=== PATIENT | male | born 1975 | race Caucasian/White ===

== ENCOUNTER 2016-09-23 07:49 | Emergency (ER) | payer BC ==
[~2016-09-23] VITALS: Ht 177.8 cm; Wt 150.0 kg
[~2016-09-23 07:49] MED LIST: AMOXICILLIN875 MG OR; ANTI-INFLAMATORY; ANTIVERT PO; AZITHROMYCIN250 MG PO; BENADRYL 50MG C50 MG PO; BENZONATATE200 MG PO; CEPHALEXIN500 MG PO; KEFLEX500 M1 PO; LORTAB 10 OR; LORTAB 5/3255 MG PO; MEDDOSEPAK PO; MELOXICAM7.5 MG PO; NAPROSYN500 MG PO; NO; NO HOME MEDS; PEPCID20 MG PO; PERCOCET 10/31 COMBO PO; PREDNISONE1 MG PO; SYMBICORT 80-4.5MCG MT; TESSALON PER100 MG PO; ULTRAM50 M1 PO; ZYRTEC10 MG PO
[2016-09-23 09:12] LABS: HEMATOCRIT 44.7 % (39.0-50.0); HEMOGLOBIN 14.9 g/dl (14.0-18.0); IMMATURE GRANULOCYTES 0.6 % (0.0-1.0); MEAN CELL VOLUME 86.8 fL CALC (80.0-100.0); MEAN CORPUSCULAR HGB 28.9 pG CALC (26.0-32.0); MEAN CORPUSCULAR HGB CONC 33.3 g/L CALC (32.0-36.0); NEUT# 15.72 thou/uL (1.82-7.42); RED BLOOD COUNT 5.15 mill/uL (4.70-6.10); RED CELL DISTRI WIDTH 13.2 % (11.5-15.5)
[2016-09-23 09:30] LABS: ALBUMIN 4.5 g/dL (3.2-5.0); ALKALINE PHOSPHATASE 87 u/l (38-126); ANION GAP 17 (6-22 (CALC)); BILIRUBIN, TOTAL 0.6 mg/dL (0.0-1.4); BUN 12 mg/dL (9-20); BUN/CREATININE RATIO 17 (12-20 (CALC)); CALCIUM 9.4 mg/dL (8.4-10.2); CARBON DIOXIDE 23 mmol/l (22-30); CHLORIDE 104 mmol/l (95-108); CREATININE 0.7 mg/dL (0.7-1.3); GFR > 60 ML/MIN (>=60 (CALC)); GFR FOR AFR.AMER. > 60 ML/MIN (>=60 (CALC)); GLUCOSE 110 mg/dL (75-110); POTASSIUM 4.3 mmol/l (3.5-5.1); SGOT/AST 30 u/l (17-59); SGPT/ALT 49 u/l (21-72); SODIUM 140 mmol/l (137-146); TOTAL PROTEIN 7.8 g/dL (6.3-8.2)
[2016-09-23 09:48] LABS: URINE BILIRUBIN - DIPSTICK NEGATIVE (NEGATIVE); URINE BLOOD DIPSTICK SMALL (NEGATIVE); URINE CLARITY CLEAR; URINE COLOR YELLOW; URINE GLUCOSE - DIPSTICK NEGATIVE (NEGATIVE); URINE KETONE NEGATIVE (NEGATIVE); URINE LEUK ESTERASE NEGATIVE (NEGATIVE); URINE NITRITE - DIPSTICK NEGATIVE (Negative); URINE PROTEIN - DIPSTICK NEGATIVE (NEG-TRACE); URINE SPECIFIC GRAVITY 1.015; URINE UROBILINOGEN - DIPSTICK 0.2 E.U./dL (0.2)
[2016-09-23 09:50] LABS: URINE RBC 0-2 RBC/hpf (0-5)
[2016-09-23 13:20] VITALS: BP 108/54
== END 2016-09-23 13:20 | disposition short-term general hospital (02) | DRG 864 ==
LOC: ED 07:49
PROVIDERS: Emergency Medicine
PROC: 009U3ZX Drainage of Spinal Canal, Percutaneous Approach, Diagnostic (ICD-10-PCS; principal; 2016-09-23)
PROC: B01BZZZ Fluoroscopy of Spinal Cord (ICD-10-PCS; 2016-09-23)
DX: R50.9 Fever, unspecified (principal); R51 Headache

== ENCOUNTER 2016-10-05 23:33 | Emergency (ER) | payer BC ==
[~2016-10-05] VITALS: Ht 177.8 cm; Wt 141.4 kg
[2016-10-05] MEDS ORDERED: KEFLEX500 MG PO (23:51)
[2016-10-06] MEDS ORDERED: NAPROSYN500 MG PO (00:25)
[2016-10-06] MEDS ORDERED: AMOXICILLIN500 MG PO (00:25)
[2016-10-06 00:28] VITALS: BP 133/75
== END 2016-10-06 00:38 | disposition home or self-care (01) | DRG 316 ==
LOC: ED 23:33
DX: T80.1XXA Vascular complications following infusion, transfusion and therapeutic injection, initial encounter (principal); M79.632 Pain in left forearm

== ENCOUNTER 2017-01-05 15:28 | Emergency (ER) | payer OTHER, BC ==
[~2017-01-05] VITALS: Ht 177.8 cm; Wt 120.0 kg
[~2017-01-05 15:28] MED LIST changes: +AMOXICILLIN500 MG PO; +KEFLEX500 MG PO
[2017-01-05] MEDS ORDERED: TRAMADOL HYDROC50 MG PO (16:47)
[2017-01-05] MEDS ORDERED: MOTRIN800 MG PO (16:47)
[2017-01-05 16:51] VITALS: BP 150/68
== END 2017-01-05 16:55 | disposition home or self-care (01) | DRG 605 ==
LOC: ED 15:28
DX: S80.01XA Contusion of right knee, initial encounter (principal); M25.461 Effusion, right knee; M25.561 Pain in right knee; V59.49XA Driver of pick-up truck or van injured in collision with other motor vehicles in traffic accident, initial encounter; Y92.414 Local residential or business street as the place of occurrence of the external cause

== ENCOUNTER 2018-03-16 22:29 | Emergency (ER) | payer BC ==
[~2018-03-16] VITALS: Ht 177.8 cm; Wt 136.6 kg
[~2018-03-16 22:29] MED LIST changes: +MOTRIN800 MG PO; +TRAMADOL HYDROC50 MG PO
[2018-03-17] MEDS ORDERED: FLEXERIL PO (00:56)
[2018-03-17] MEDS ORDERED: NAPROSYN500 MG PO (00:56)
[2018-03-17 01:05] VITALS: BP 120/66
== END 2018-03-17 01:05 | disposition home or self-care (01) | DRG 554 ==
LOC: ED 22:29
DX: M17.12 Unilateral primary osteoarthritis, left knee (principal); M47.816 Spondylosis without myelopathy or radiculopathy, lumbar region; M79.605 Pain in left leg; M25.462 Effusion, left knee; M25.562 Pain in left knee; R20.0 Anesthesia of skin; M79.652 Pain in left thigh

== ENCOUNTER 2018-09-13 08:53 | Emergency (ER) | payer BC ==
[~2018-09-13] VITALS: Ht 177.8 cm; Wt 131.0 kg
[~2018-09-13 08:53] MED LIST changes: +FLEXERIL PO
[2018-09-13 10:23] LABS: HEMATOCRIT 46.9 % (39.0-50.0); HEMOGLOBIN 15.3 g/dl (14.0-18.0); IMMATURE GRANULOCYTES 1.2 % (0.0-5.0); MEAN CELL VOLUME 87.2 fL CALC (80.0-100.0); MEAN CORPUSCULAR HGB 28.4 pG CALC (26.0-32.0); MEAN CORPUSCULAR HGB CONC 32.6 g/L CALC (32.0-36.0); NEUT# 7.74 thou/uL (1.82-7.42); RED BLOOD COUNT 5.38 mill/uL (4.70-6.10); RED CELL DISTRI WIDTH 12.9 % (11.5-15.5)
[2018-09-13 10:29] LABS: ALBUMIN 4.4 g/dL (3.2-5.0); ALKALINE PHOSPHATASE 82 u/l (38-126); ANION GAP 16 (6-22 (CALC)); BUN 13 mg/dL (9-20); BUN/CREATININE RATIO 22 (12-20 (CALC)); CARBON DIOXIDE 23 mmol/l (22-30); CHLORIDE 106 mmol/l (95-108); CREATININE 0.6 mg/dL (0.7-1.3); GFR > 60 ML/MIN (>=60 (CALC)); GFR FOR AFR.AMER. > 60 ML/MIN (>=60 (CALC)); POTASSIUM 4.2 mmol/l (3.5-5.1); SGOT/AST 17 u/l (17-59); SODIUM 141 mmol/l (137-146); TOTAL PROTEIN 7.5 g/dL (6.3-8.2)
[2018-09-13 10:30] LABS: BILIRUBIN, TOTAL 0.3 mg/dL (0.0-1.4)
[2018-09-13 10:35] LABS: URINE BILIRUBIN - DIPSTICK NEGATIVE (NEGATIVE); URINE BLOOD DIPSTICK TRACE-LYSED (NEGATIVE); URINE COLOR YELLOW; URINE GLUCOSE - DIPSTICK NEGATIVE (NEGATIVE); URINE KETONE NEGATIVE (NEGATIVE); URINE LEUK ESTERASE NEGATIVE (NEGATIVE); URINE NITRITE - DIPSTICK NEGATIVE (Negative); URINE PH 5.5 (4.5-8.0); URINE PROTEIN - DIPSTICK NEGATIVE (NEG-TRACE); URINE SPECIFIC GRAVITY 1.025; URINE UROBILINOGEN - DIPSTICK 0.2 E.U./dL (0.2)
[2018-09-13] MEDS ORDERED: ZITHROMAX250 MG PO (11:00)
[2018-09-13] MEDS ORDERED: PROVENTIL HFA IN (11:00)
[2018-09-13] MEDS ORDERED: TESSALON PER100 MG PO (11:00)
[2018-09-13 11:04] VITALS: BP 128/70
== END 2018-09-13 11:14 | disposition home or self-care (01) | DRG 153 ==
LOC: ED 08:53
PROVIDERS: Emergency Medicine
DX: J06.9 Acute upper respiratory infection, unspecified (principal)

== ENCOUNTER 2019-01-21 14:45 | Emergency (ER) | payer BC ==
[~2019-01-21] VITALS: Ht 177.8 cm; Wt 152.0 kg
[~2019-01-21 14:45] MED LIST changes: +PROVENTIL HFA IN; +ZITHROMAX250 MG PO
[2019-01-21] MEDS ORDERED: GENTAK0.32 OS (15:56)
[2019-01-21 16:03] VITALS: BP 145/83
== END 2019-01-21 16:10 | disposition home or self-care (01) | DRG 125 ==
LOC: ED 14:45
DX: S05.02XA Injury of conjunctiva and corneal abrasion without foreign body, left eye, initial encounter (principal); W20.8XXA Other cause of strike by thrown, projected or falling object, initial encounter; Y93.89 Activity, other specified; Y92.89 Other specified places as the place of occurrence of the external cause; Y99.0 Civilian activity done for income or pay

== ENCOUNTER 2019-03-04 17:29 | Emergency (ER) | payer BC ==
[~2019-03-04] VITALS: Ht 177.8 cm; Wt 158.0 kg
[~2019-03-04 17:29] MED LIST changes: +BACTRIM DS1 TAB PO; +GENTAK0.32 OS
[2019-03-04 17:50] VITALS: BP 136/97
== END 2019-03-04 17:50 | disposition home or self-care (01) | DRG 951 ==
LOC: ED 17:29
DX: Z48.01 Encounter for change or removal of surgical wound dressing (principal)

== ENCOUNTER 2019-05-28 | Emergency (ER) | payer BC ==
[2019-05-28 12:38] LABS: HEMATOCRIT 42.2 % (39.0-50.0); HEMOGLOBIN 13.6 g/dl (14.0-18.0); IMMATURE GRANULOCYTES 0.4 % (0.0-5.0); MEAN CELL VOLUME 88.3 fL CALC (80.0-100.0); MEAN CORPUSCULAR HGB 28.5 pG CALC (26.0-32.0); MEAN CORPUSCULAR HGB CONC 32.2 g/L CALC (32.0-36.0); NEUT# 8.83 thou/uL (1.82-7.42); RED BLOOD COUNT 4.78 mill/uL (4.70-6.10); RED CELL DISTRI WIDTH 12.9 % (11.5-15.5)
[2019-05-28 12:51] LABS: ALBUMIN 4.1 g/dL (3.2-5.0); ALKALINE PHOSPHATASE 77 u/l (38-126); ANION GAP 10 (6-22 (CALC)); BUN 20 mg/dL (9-20); BUN/CREATININE RATIO 30 (12-20 (CALC)); CARBON DIOXIDE 26 mmol/l (22-30); CHLORIDE 106 mmol/l (95-108); CREATININE 0.7 mg/dL (0.7-1.3); GFR > 60 ML/MIN (>=60 (CALC)); GFR FOR AFR.AMER. > 60 ML/MIN (>=60 (CALC)); POTASSIUM 4.3 mmol/l (3.5-5.1); SGOT/AST 23 u/l (17-59); SODIUM 137 mmol/l (137-146); TOTAL PROTEIN 7.1 g/dL (6.3-8.2)
[2019-05-28 12:54] LABS: BILIRUBIN, TOTAL 0.5 mg/dL (0.0-1.4)
[2019-05-28 14:21] LABS: URINE BILIRUBIN - DIPSTICK NEGATIVE (NEGATIVE); URINE BLOOD DIPSTICK TRACE-INTACT (NEGATIVE); URINE CLARITY CLEAR; URINE COLOR YELLOW; URINE GLUCOSE - DIPSTICK NEGATIVE (NEGATIVE); URINE KETONE TRACE mg/dL (NEGATIVE); URINE LEUK ESTERASE NEGATIVE (Negative); URINE NITRITE - DIPSTICK NEGATIVE (Negative); URINE PH 6.5 (4.5-8.0); URINE PROTEIN - DIPSTICK NEGATIVE (NEG-TRACE); URINE UROBILINOGEN - DIPSTICK 0.2 E.U./dL (0.2)
[2019-05-28] MEDS ORDERED: TRAMADOL HYDROC50 M1 PO (15:10)
[2019-05-28] MEDS ORDERED: TAMSULOSIN0.4 MG PO (15:10)
== END 2019-05-28 15:35 | disposition home or self-care (01) | DRG 392 ==
DX: R10.32 Left lower quadrant pain (principal)
CPT/HCPCS: Q9967

== ENCOUNTER 2020-02-11 20:59 | Emergency (ER) | payer OTHER, BC ==
[~2020-02-11] VITALS: Ht 177.8 cm; Wt 136.0 kg
[~2020-02-11 20:59] MED LIST changes: +TAMSULOSIN0.4 MG PO; +TRAMADOL HYDROC50 M1 PO
[2020-02-12] MEDS ORDERED: IBUPROFEN600 MG PO (00:16)
[2020-02-12 01:05] VITALS: BP 120/78
== END 2020-02-12 01:05 | disposition home or self-care (01) | DRG 914 ==
LOC: ED 20:59
DX: S39.92XA Unspecified injury of lower back, initial encounter (principal); S93.601A Unspecified sprain of right foot, initial encounter; V47.0XXA Car driver injured in collision with fixed or stationary object in nontraffic accident, initial encounter; Y93.I9 Activity, other involving external motion; Y92.39 Other specified sports and athletic area as the place of occurrence of the external cause

== ENCOUNTER 2021-01-07 14:09 | Emergency (ER) | payer OTHER, BC ==
[~2021-01-07] VITALS: Ht 177.8 cm; Wt 145.5 kg
[~2021-01-07 14:09] MED LIST changes: +IBUPROFEN600 MG PO
[2021-01-07 15:08] LABS: HEMATOCRIT 40.9 % (39.0-50.0); IMMATURE GRANULOCYTES 0.3 % (0.0-5.0); MEAN CELL VOLUME 85.7 fL CALC (80.0-100.0); MEAN CORPUSCULAR HGB 27.3 pG CALC (26.0-32.0); MEAN CORPUSCULAR HGB CONC 31.8 g/dL CAL (32.0-36.0); NEUT# 5.71 thou/uL (1.82-7.42); RED BLOOD COUNT 4.77 mill/uL (4.70-6.10); RED CELL DISTRI WIDTH 13.2 % (11.5-15.5)
[2021-01-07 15:40] LABS: ALBUMIN 4.1 g/dL (3.2-5.0); ALKALINE PHOSPHATASE 86 u/l (38-126); ANION GAP 15 (6-22 (CALC)); BILIRUBIN, TOTAL 0.3 mg/dL (0.0-1.4); BUN 13 mg/dL (9-20); BUN/CREATININE RATIO 12 (12-20 (CALC)); CARBON DIOXIDE 25 mmol/l (22-30); CHLORIDE 103 mmol/l (95-108); GFR > 60 ML/MIN (>=60 (CALC)); GFR FOR AFR.AMER. > 60 ML/MIN (>=60 (CALC)); SGOT/AST 22 u/l (17-59); SODIUM 139 mmol/l (137-146); TOTAL PROTEIN 7.4 g/dL (6.3-8.2)
[2021-01-07] MEDS ORDERED: KEFLEX500 MG PO (16:02)
[2021-01-07 16:07] VITALS: BP 119/58
== END 2021-01-07 16:27 | disposition home or self-care (01) | DRG 603 ==
LOC: ED 14:09
DX: L03.115 Cellulitis of right lower limb (principal); Z96.641 Presence of right artificial hip joint

== ENCOUNTER 2021-04-20 21:34 | Emergency (ER) | payer OTHER, BC ==
[~2021-04-20] VITALS: Ht 177.8 cm; Wt 145.0 kg
[2021-04-20 23:51] LABS: HEMATOCRIT 41.2 % (39.0-50.0); HEMOGLOBIN 13.2 g/dl (14.0-18.0); IMMATURE GRANULOCYTES 0.3 % (0.0-5.0); MEAN CELL VOLUME 85.3 fL CALC (80.0-100.0); MEAN CORPUSCULAR HGB 27.3 pG CALC (26.0-32.0); NEUT# 5.14 thou/uL (1.82-7.42); RED BLOOD COUNT 4.83 mill/uL (4.70-6.10); RED CELL DISTRI WIDTH 15.1 % (11.5-15.5)
[2021-04-21 00:04] LABS: ALBUMIN 3.8 g/dL (3.2-5.0); ALKALINE PHOSPHATASE 72 u/l (38-126); BILIRUBIN, TOTAL 0.3 mg/dL (0.0-1.4); BUN 15 mg/dL (9-20); BUN/CREATININE RATIO 18 (12-20 (CALC)); CHLORIDE 103 mmol/l (95-108); CREATININE 0.8 mg/dL (0.7-1.3); GFR > 60 ML/MIN (>=60 (CALC)); GFR FOR AFR.AMER. > 60 ML/MIN (>=60 (CALC)); POTASSIUM 3.9 mmol/l (3.5-5.1); SGOT/AST 22 u/l (17-59); SODIUM 139 mmol/l (137-146)
[2021-04-21 00:06] LABS: ANION GAP 9 (6-22 (CALC)); CARBON DIOXIDE 31 mmol/l (22-30)
[2021-04-21] MEDS ORDERED: CYCLOBENZAPRINE10 MG PO (01:21)
[2021-04-21] MEDS ORDERED: NAPROXEN500 MG PO (01:21)
[2021-04-21 01:53] VITALS: BP 137/86
== END 2021-04-21 02:05 | disposition home or self-care (01) | DRG 538 ==
LOC: ED 21:34
PROVIDERS: Emergency Medicine
DX: S73.101A Unspecified sprain of right hip, initial encounter (principal); M47.816 Spondylosis without myelopathy or radiculopathy, lumbar region; K59.00 Constipation, unspecified; Z86.16 Personal history of COVID-19; Z96.641 Presence of right artificial hip joint; X58.XXXA Exposure to other specified factors, initial encounter
CPT/HCPCS: Q9967

== ENCOUNTER 2021-11-18 15:16 | Emergency (ER) | payer OTHER, BC ==
[~2021-11-18] VITALS: Ht 177.8 cm; Wt 136.3 kg
[2021-11-18] VITALS (10 sets, daily range): BP systolic 110–133; BP diastolic 59–87
[~2021-11-18 15:16] MED LIST changes: +CYCLOBENZAPRINE10 MG PO; +NAPROXEN500 MG PO
[2021-11-18] MEDS ORDERED: METHOCARBAMOL500 MG PO (18:03)
[2021-11-18] MEDS ORDERED: NAPROXEN500 MG PO (18:03)
== END 2021-11-18 18:13 | disposition home or self-care (01) | DRG 538 ==
LOC: ED 15:16
DX: S76.011A Strain of muscle, fascia and tendon of right hip, initial encounter (principal); W10.9XXA Fall (on) (from) unspecified stairs and steps, initial encounter; Y92.009 Unspecified place in unspecified non-institutional (private) residence as the place of occurrence of the external cause; Z86.16 Personal history of COVID-19; Z96.641 Presence of right artificial hip joint

== ENCOUNTER 2021-12-20 22:20 | Observation (INO) | payer OTHER, BC ==
[~2021-12-20] VITALS: Ht 177.8 cm; Wt 140.0 kg
[~2021-12-20 22:20] MED LIST changes: +METHOCARBAMOL500 MG PO
[2021-12-20 22:58] LABS: HEMATOCRIT 41.2 % (39.0-50.0); HEMOGLOBIN 13.6 g/dl (14.0-18.0); IMMATURE GRANULOCYTES 0.2 % (0.0-5.0); MEAN CELL VOLUME 83.2 fL CALC (80.0-100.0); MEAN CORPUSCULAR HGB 27.5 pG CALC (26.0-32.0); NEUT# 5.63 thou/uL (1.82-7.42); RED BLOOD COUNT 4.95 mill/uL (4.70-6.10); RED CELL DISTRI WIDTH 14.5 % (11.5-15.5)
[2021-12-20 23:00] VITALS: BP 140/81
[2021-12-20 23:07] LABS: INTERNATIONAL NORMALIZED RATIO 1.1 RATIO (0.7-1.3); PROTHROMBIN TIME 10.6 SECONDS (9.0-12.5)
[2021-12-20 23:13] LABS: ALBUMIN 4.2 g/dL (3.2-5.0); ALKALINE PHOSPHATASE 74 u/l (38-126); ANION GAP 14 (6-22 (CALC)); BILIRUBIN, TOTAL 0.2 mg/dL (0.0-1.4); BUN 17 mg/dL (9-20); BUN/CREATININE RATIO 24 (12-20 (CALC)); CARBON DIOXIDE 27 mmol/l (22-30); CHLORIDE 102 mmol/l (95-108); CREATININE 0.7 mg/dL (0.7-1.3); GFR FOR AFR.AMER. > 60 ML/MIN (>=60 (CALC)); GFR OTHER RACES > 60 ML/MIN (>=60 (CALC)); POTASSIUM 3.8 mmol/l (3.5-5.1); SGOT/AST 28 u/l (17-59); SODIUM 139 mmol/l (137-146); TOTAL PROTEIN 7.6 g/dL (6.3-8.2)
[2021-12-20 23:15] VITALS: BP 136/81
[2021-12-20 23:30] VITALS: BP 131/82
[2021-12-20 23:45] VITALS: BP 135/85
[2021-12-20] MEDS ORDERED: HYDROCODONE BIT1 TA7 PO (23:45)
[2021-12-21] VITALS (11 sets, daily range): BP systolic 101–133; BP diastolic 61–89
[2021-12-21 01:20] LABS: URINE BILIRUBIN - DIPSTICK NEGATIVE (NEGATIVE); URINE BLOOD DIPSTICK TRACE-INTACT (NEGATIVE); URINE COLOR YELLOW; URINE GLUCOSE - DIPSTICK NEGATIVE (NEGATIVE); URINE KETONE NEGATIVE (NEGATIVE); URINE LEUK ESTERASE NEGATIVE (NEGATIVE); URINE PROTEIN - DIPSTICK NEGATIVE (NEG-TRACE); URINE SPECIFIC GRAVITY >=1.030; URINE UROBILINOGEN - DIPSTICK 0.2 E.U./dL (0.2)
[2021-12-21 01:28] LABS: URINE NITRITE - DIPSTICK NEGATIVE (Negative)
== END 2021-12-21 22:30 | disposition home or self-care (01) | DRG 74 ==
LOC: ED 22:20 → MS2 12-21 01:06
PROVIDERS: Family Medicine; ADMIT Internal Medicine; ATTEND Internal Medicine
DX: G62.89 Other specified polyneuropathies (principal); Z86.16 Personal history of COVID-19; Z96.641 Presence of right artificial hip joint; Z20.822 Contact with and (suspected) exposure to COVID-19
CPT/HCPCS: J1650; J3101; Q3014

== ENCOUNTER 2022-10-01 12:37 | Emergency (ER) | payer OTHER, BC ==
[~2022-10-01] VITALS: Ht 177.8 cm; Wt 145.1 kg
[~2022-10-01 12:37] MED LIST changes: +HYDROCODONE BIT1 TA7 PO
[2022-10-01 12:53] VITALS: BP 152/90
[2022-10-01 13:00] VITALS: BP 141/93
[2022-10-01 13:15] VITALS: BP 118/63
[2022-10-01 13:30] VITALS: BP 138/77
[2022-10-01 13:45] VITALS: BP 145/71
[2022-10-01 13:49] VITALS: BP 145/71
== END 2022-10-01 13:55 | disposition home or self-care (01) | DRG 605 ==
LOC: ED 12:37
DX: S60.222A Contusion of left hand, initial encounter (principal); W23.1XXA Caught, crushed, jammed, or pinched between stationary objects, initial encounter; S93.601A Unspecified sprain of right foot, initial encounter; W17.2XXA Fall into hole, initial encounter; Z86.16 Personal history of COVID-19

== ENCOUNTER 2022-12-14 09:34 | Emergency (ER) | payer OTHER, BC ==
[~2022-12-14] VITALS: Ht 177.8 cm; Wt 145.1 kg
[2022-12-14 09:42] VITALS: BP 140/81
[2022-12-14] MEDS ORDERED: OMNI-PAC300 MG PO (09:49)
[2022-12-14 10:01] VITALS: BP 126/78
[2022-12-14 10:21] VITALS: BP 126/78
== END 2022-12-14 10:30 | disposition home or self-care (01) | DRG 605 ==
LOC: ED 09:34
PROC: 0HQEXZZ Repair Left Lower Arm Skin, External Approach (ICD-10-PCS; principal; 2022-12-14)
DX: S51.812A Laceration without foreign body of left forearm, initial encounter (principal); W26.0XXA Contact with knife, initial encounter; Y93.89 Activity, other specified; Z86.16 Personal history of COVID-19

== ENCOUNTER 2024-05-13 23:11 | Emergency (ER) | payer OTHER, BC ==
[~2024-05-13] VITALS: Ht 177.8 cm; Wt 150.0 kg
[~2024-05-13 23:11] MED LIST changes: +HYDROCODONE POLISTIR PO; +OMNI-PAC300 MG PO; +PREVACID30 M1 PO
[2024-05-13] MEDS ORDERED: TAMSULOSIN HCL 0.4 MG CAP PO STA (23:37)
[2024-05-13] MEDS ORDERED: SODIUM CHLORIDE 0.9% 1,000 ML IV STA (23:37)
[2024-05-13] MEDS ORDERED: KETOROLAC TROMETHAMINE 30 MG/ML SDV IV ONE (23:40)
[2024-05-13] MEDS ORDERED: PROMETHAZINE HCL 25 MG/ML AMP IV ONE (23:40)
[2024-05-14 00:08] LABS: ALBUMIN 4.2 g/dL (3.2-5.0); CREATININE 0.7 mg/dL (0.7-1.3); POTASSIUM 3.7 mmol/l (3.5-5.1); TOTAL PROTEIN 7.4 g/dL (6.3-8.2)
[2024-05-14 00:10] LABS: BASO% 0.4 % (0-3); BILIRUBIN, TOTAL 0.4 mg/dL (0.2-1.3); EOS% 1.9 % (0-8); HEMATOCRIT 45.3 % (39.0-50.0); HEMOGLOBIN 14.7 g/dl (14.0-18.0); IMMATURE GRANULOCYTES 0.4 % (0.0-5.0); LYMPH% 19.2 % (15-41); MEAN CELL VOLUME 88.5 fL CALC (80.0-100.0); MEAN CORPUSCULAR HGB 28.7 pG CALC (26.0-32.0); MEAN CORPUSCULAR HGB CONC 32.5 g/dL CAL (32.0-36.0); MONO% 9.4 % (2-13); NEUT# 6.21 thou/uL (1.82-7.42); NEUT% 68.7 % (42-76); RED BLOOD COUNT 5.12 mill/uL (4.70-6.10)
[2024-05-14 01:09] LABS: URINE BILIRUBIN - DIPSTICK Negative (NEGATIVE); URINE BLOOD DIPSTICK Small (NEGATIVE); URINE COLOR Yellow; URINE GLUCOSE - DIPSTICK Negative (NEGATIVE); URINE LEUK ESTERASE Negative (NEGATIVE); URINE NITRITE - DIPSTICK Negative (Negative); URINE PROTEIN - DIPSTICK Negative (NEG-TRACE); URINE SPECIFIC GRAVITY 1.015; URINE UROBILINOGEN - DIPSTICK 0.2 E.U./dL (0.2)
[2024-05-14 01:10] LABS: URINE KETONE Negative (NEGATIVE)
[2024-05-14 01:26] LABS: URINE BACTERIA FEW hpf; URINE EPITHELIAL CELLS FEW EPI/hpf (0-FEW); URINE WBC 0-2 WBC/hpf (0-5)
[2024-05-14] MEDS ORDERED: TYLENOL # 31 TA1 PO (02:16)
[2024-05-14] MEDS ORDERED: VOLTAREN - GENE75 MG PO (02:16)
[2024-05-14 02:30] VITALS: BP 137/82
== END 2024-05-14 02:30 | disposition home or self-care (01) | DRG 392 ==
LOC: ED 23:11
PROVIDERS: Family Medicine
DX: R10.9 Unspecified abdominal pain (principal)
CPT/HCPCS: J2550

== ENCOUNTER 2024-06-06 08:00 | Day surgery (SDC) | payer BC ==
[~2024-06-06] VITALS: Ht 177.8 cm; Wt 149.7 kg
[~2024-06-06 08:00] MED LIST changes: +ACETAMINOPHEN325 MG PO; +TYLENOL # 31 TA1 PO; +VOLTAREN - GENE75 MG PO
[2024-06-06] MEDS ORDERED: FAMOTIDINE 10MG/ML 2ML SDV IV ONE (08:03)
[2024-06-06] MEDS ORDERED: SODIUM CHLORIDE 0.9% 1,000 ML IV ONE (08:04)
[2024-06-06] MEDS ORDERED: PREVACID30 M1 PO (09:47)
[2024-06-06 10:07] VITALS: BP 137/91
[2024-06-06] MEDS ORDERED: LIDOCAINE HCL 2% 2ML SDV IV ONE (16:39)
[2024-06-06] MEDS ORDERED: GLYCOPYRROLATE 0.2 MG/ML IV ONE (16:39)
[2024-06-06] MEDS ORDERED: PROPOFOL 200 MG/20 ML VIAL IV ONE (16:39)
== END 2024-06-06 10:25 | disposition home or self-care (01) | DRG 951 ==
LOC: ENDO 08:00 → ORM 09:30 → ENDO 09:30
PROVIDERS: ATTEND Surgery
PROC: 0DBM8ZX Excision of Descending Colon, Via Natural or Artificial Opening Endoscopic, Diagnostic (ICD-10-PCS; principal; 2024-06-06)
PROC: 0DB98ZX Excision of Duodenum, Via Natural or Artificial Opening Endoscopic, Diagnostic (ICD-10-PCS; 2024-06-06)
PROC: 0DB78ZX Excision of Stomach, Pylorus, Via Natural or Artificial Opening Endoscopic, Diagnostic (ICD-10-PCS; 2024-06-06)
PROC: 0DB48ZX Excision of Esophagogastric Junction, Via Natural or Artificial Opening Endoscopic, Diagnostic (ICD-10-PCS; 2024-06-06)
DX: Z12.11 Encounter for screening for malignant neoplasm of colon (principal); L03.115 Cellulitis of right lower limb; D12.4 Benign neoplasm of descending colon; K64.8 Other hemorrhoids; K29.70 Gastritis, unspecified, without bleeding; K26.9 Duodenal ulcer, unspecified as acute or chronic, without hemorrhage or perforation; K21.9 Gastro-esophageal reflux disease without esophagitis; J32.9 Chronic sinusitis, unspecified; Z01.818 Encounter for other preprocedural examination; Z11.52 Encounter for screening for COVID-19; R10.12 Left upper quadrant pain; R53.1 Weakness; D72.828 Other elevated white blood cell count; M53.3 Sacrococcygeal disorders, not elsewhere classified; M47.896 Other spondylosis, lumbar region; Z87.19 Personal history of other diseases of the digestive system; R73.03 Prediabetes; G47.33 Obstructive sleep apnea (adult) (pediatric); E66.9 Obesity, unspecified; Z98.890 Other specified postprocedural states
CPT/HCPCS: J1596